=== PATIENT | male | born 1970 | race Caucasian/White ===

== ENCOUNTER → 2016-09-24 | Outpatient (CLI) | payer BC | END | disposition home or self-care (01) | LOC: RADMRIMAIN 20:59 | PROVIDERS: ATTEND Family Medicine | DX: Z53.9 Procedure and treatment not carried out, unspecified reason (principal) ==

== ENCOUNTER → 2016-10-19 | Outpatient (CLI) | payer BC ==
[2016-10-19 10:55] LABS: Basophils # (A) 0.1 k/uL (0-0.2); Basophils % (A) 1 %; CH 28.1; CHCM 32.7; Eosinophils # (A) 0.2 k/uL (0-0.7); Eosinophils % (A) 2 %; HCT 44.7 % (39.0-53.0); HDW 2.57; HGB 14.6 gm/dL (13.0-17.5); Luc # (Auto) 0.19; Luc % (Auto) 3; Lymphocytes # (A) 2.2 k/uL (1.0-4.8); Lymphocytes % (A) 29 %; MCH 28.1 pg (25.0-35.0); MCHC 32.6 g/dL (31.0-37.0); MCV 86.3 fL (80.0-100.0); Monocytes # (A) 0.5 k/uL (0-1.0); Monocytes % (A) 7 %; Neutrophils # (A) 4.3 k/uL (1.3-7.7); Neutrophils % (A) 58 %; RBC 5.18 m/uL (4.30-5.90); RDW 13.6 % (11.5-15.5); WBC 7.5 k/uL (3.8-10.6)
[2016-10-19 11:16] LABS: Potassium 3.6 mmol/L (3.5-5.1)
== END | disposition home or self-care (01) ==
LOC: LABPAT 10:13
PROVIDERS: ATTEND Orthopaedic Surgery
DX: Z01.812 Encounter for preprocedural laboratory examination (principal); M75.42 Impingement syndrome of left shoulder
CPT/HCPCS: 80051; 85025

== ENCOUNTER 2016-11-11 06:13 | Day surgery (SDC) | payer BC ==
[2016-11-09 09:11] VITALS: BMI 37.9
--- NOTE | 2016-11-10 16:59 | HP ---
DATE OF ADMISSION: Fuad Boothe is a 46-year-old patient seen with progressive left shoulder pain. After having treatment options discussed, he elected to proceed with left shoulder arthroscopy. Consent was obtained. Past medical history is hypertension, hepatitis. PAST SURGICAL HISTORY: Cholecystectomy, herniorrhaphy. Daily medications: 1. Losartan. 2. Potassium. 3. Hydrochlorothiazide. ALLERGIES: POSSIBLE PENICILLIN. SOCIAL HISTORY: Patient denies current tobacco use. Physical evaluation of left shoulder: Flexion 90 degrees, abduction is 40 degrees, external rotation 0 degrees with pain and weakness, tenderness along the anterolateral acromion, subacromial space area. Impingement +60 degrees distal neurovascular exam is intact. Radiographs of the left shoulder revealed a type II anterior acromion, acromioclavicular joint osteoarthritis. MRI of the left shoulder revealed osteoarthritis type II anterior acromion, adhesions and tendinitis. IMPRESSION: Left shoulder impingement with acromioclavicular joint osteoarthritis, and adhesive capsulitis. PLAN: Left shoulder arthroscopy, subacromial decompression, possible Stevie procedure, lysis of adhesions and debridement.
[~2016-11-11 06:13] MED LIST: CLINDAMYCIN 900 MG in DEXTROSE 5% IN WATER 50 ML IVPB ONE; DEXAMETHASONE SOD PHOSPHATE 10 MG/ML 1 ML VIAL IV ONE; FAMOTIDINE 20 MG/2 ML VIAL IV PRN; HYDROmorphone 1 MG/ML 1 ML SYRINGE IVP PRN; LIDOCAINE 1% 20 ML VIAL (10MG/ML) FOR IV START INTRADERMA PRN; MIDAZOLAM 2 MG/2 ML VIAL IV PRN; SCOPOLAMINE 1.5MG/72HR PATCH TRANSDERM ONE
[2016-11-11 07:00] VITALS: RESP 16
[2016-11-11] MEDS: LACTATED RINGERS 1,000 ML IV SCH ×2 (07:04→11:02)
[2016-11-11] MEDS ORDERED: ROCURONIUM BROMIDE 10 MG/ML 10 ML VIAL IV ONE (08:00)
[2016-11-11] MEDS ORDERED: PROPOFOL 10 MG/ML 20 ML VIAL IV ONE (08:00)
[2016-11-11] MEDS ORDERED: SUCCINYLCHOLINE CHLORIDE 100 MG/5 ML SYR IV ONE (08:00)
[2016-11-11] MEDS ORDERED: LIDOCAINE 2%-EPI 1:100,000 20 ML VIAL ONE (08:00)
[2016-11-11] MEDS ORDERED: LIDOCAINE 1% INJ 10MG/ML (20 ML MDV) ONE (08:00)
[2016-11-11] MEDS ORDERED: NEOSTIGMINE 1 MG/ML 10 ML VIAL ONE (08:00)
[2016-11-11] MEDS ORDERED: GLYCOPYRROLATE 0.2 MG/ML 2 ML VIAL ONE (08:00)
[2016-11-11] MEDS ORDERED: fentaNYL (PF) 50 MCG/ML 2 ML AMP ONE (08:00)
[2016-11-11] MEDS ORDERED: PHENYLEPHRINE-0.9% NACL SYG 1 MG/10 ML SYRINGE ONE (08:00)
[2016-11-11] MEDS ORDERED: ROPIVACAINE 5 MG/ML 30 ML VIAL ONE (08:00)
--- NOTE | 2016-11-11 09:54 | P.OP ---
Date of Procedure: 11/11/16 Preoperative Diagnosis: 1. Left shoulder impingement 2. Left shoulder adhesive capsulitis Postoperative Diagnosis: 1. Left shoulder impingement 2. Left shoulder partial rotator cuff tear 3. Left shoulder acromioclavicular joint osteoarthritis 4. Left shoulder partial biceps tendon tear 5. Left shoulder adhesive capsulitis 6. Left shoulder superficial labral tear Procedure(s) Performed: 1. Left shoulder arthroscopic subacromial decompression 2. Left shoulder arthroscopic debridement partial rotator cuff tear 3. Left shoulder arthroscopic Stevie procedure 4. Left shoulder arthroscopic biceps tenotomy 5. Left shoulder arthroscopic lysis of adhesions 6. Left shoulder arthroscopic debridement labral tear Implants: Anesthesia: GETA, regional (Shoulder block) Surgeon: César Velasquez Parking Analyst #1: Hugo Rousseau Estimated Blood Loss (ml): 20 Pathology: none sent Condition: stable Disposition: PACU Indications for Procedure: 46-year-old patient seen with progressive left shoulder pain. After having treatment options discussed, he elected to proceed with arthroscopy. Operative Findings: see description of procedure Description of Procedure: Patient underwent a shoulder block by department of anesthesia. The patient was then taken to the operative suite. The patient underwent a general anesthetic by the department of anesthesia. The patient was placed into a lateral position and secured. There was appropriate padding of the bony prominence. Left shoulder was then prepped and draped in normal sterile orthopedic fashion. We placed the extremity in 10 pounds of longitudinal traction. A posterior incision was now made for a posterior working portal site. The trocar and cannula were inserted into the glenohumeral joint. Arthroscopy was initiated. Spinal needle was now inserted anteriorly, to ascertain the anterior working portal site. An incision was now made in that area, a trocar was inserted followed by a probe. There was partial tearing long head biceps tendon. There was superficial tearing of the superior and anterior labrum. There were grade 1/2 chondromalacia changes of the glenoid and grade 1 chondromalacia changes of the humeral head, no osteochondral tears were present. We did note adhesions within the glenohumeral joint as well. At this point I performed an arthroscopic biceps tenotomy. I debrided the labral tear down to stable tissue and performed a lysis of the adhesions. The residual labrum was probed and found to be stable. At this point I removed the instruments from glenohumeral joint. Utilizing the posterior working portal site, the trocar and cannula were inserted into the subacromial space. Arthroscopy initiated. I made an incision 2 fingerbreadths lateral to the acromion. I introduced my trocar followed by my ArthroCare ablator. I now began ablating thick subacromial bursal tissue, which exposed the undersurface of the anterior acromion. This was diminished subacromial space. There was a very prominent anterior acromion. A motorized bur was introduced and a subacromial decompression was performed. I also excised some osteophytes off the inferior aspect of the distal clavicle. The AC joint was visualized and noted to be fairly arthritic. Our motorized bur was introduced in the anterior portal site and a Stevie procedure was performed without difficulty, decompressing the AC joint nicely. I did note some adhesions within the area of the subacromial space which I debrided out with a motorized bur. I turned my attention to the rotator cuff. There was superficial tearing of the supraspinatus along the distal insertion area. I used a motorized shaver and debrided down to stable tissue. The residual rotator cuff tendon tissue was thoroughly probed and there was no evidence for any perforation or through and through tear. The residual tissue was fairly robust. I injected 1 mL of Allogen at the debrided rotator cuff site as well as intra-articular. Instruments now removed from the portal sites. All portal sites were approximated with nylon suture. Sterile dressings were applied followed by a shoulder immobilizer. Ramy TELLEZ assisted with the procedure. The patient was awakened, transferred to a bed, and taken to recovery in stable condition.
[2016-11-11 10:04] VITALS: TEMP 96.8
[2016-11-11 12:06] VITALS: PULSE 85
[2016-11-11 12:19] VITALS: BP 119/79
== END 2016-11-11 13:27 | disposition home or self-care (01) ==
LOC: OR 06:13
PROVIDERS: ATTEND Orthopaedic Surgery
DX: M75.112 Incomplete rotator cuff tear or rupture of left shoulder, not specified as traumatic (principal); M75.02 Adhesive capsulitis of left shoulder; S46.112A Strain of muscle, fascia and tendon of long head of biceps, left arm, initial encounter; S43.492A Other sprain of left shoulder joint, initial encounter; X58.XXXA Exposure to other specified factors, initial encounter; M19.012 Primary osteoarthritis, left shoulder; M75.42 Impingement syndrome of left shoulder; M94.212 Chondromalacia, left shoulder; M25.712 Osteophyte, left shoulder; I10 Essential (primary) hypertension; Z79.899 Other long term (current) drug therapy; Z79.1 Long term (current) use of non-steroidal anti-inflammatories (NSAID)
CPT/HCPCS: 64415; 29824; 29826; 29827; C1765; J2250; J1100; J2710; J2001; J3010; J2795; J2370; J0330; J2704

== ENCOUNTER → 2020-02-07 | Outpatient (CLI) | payer BC ==
[2020-02-07 14:33] LABS: Basophils # (A) 0.1 k/uL (0-0.2); Basophils % (A) 1 %; Eosinophils # (A) 0.2 k/uL (0-0.7); Eosinophils % (A) 2 %; HCT 47.9 % (39.0-53.0); HGB 15.5 gm/dL (13.0-17.5); Lymphocytes # (A) 2.7 k/uL (1.0-4.8); Lymphocytes % (A) 30 %; MCHC 32.3 g/dL (31.0-37.0); MCV 83.5 fL (80.0-100.0); Mean Platelet Volume 7.8; Monocytes # (A) 0.8 k/uL (0-1.0); Monocytes % (A) 8 %; Neutrophils # (A) 5.3 k/uL (1.3-7.7); Neutrophils % (A) 57 %; Platelet Count 329 k/uL (150-450); RBC 5.73 m/uL (4.30-5.90); WBC 9.2 k/uL (3.8-10.6)
== END | disposition home or self-care (01) ==
LOC: LABPAT 12:50
PROVIDERS: ATTEND Orthopaedic Surgery
DX: Z01.818 Encounter for other preprocedural examination (principal); M75.41 Impingement syndrome of right shoulder
CPT/HCPCS: 85025

== ENCOUNTER → 2020-02-16 | Outpatient (CLI) | payer BC ==
[2020-02-16 14:58] LABS: Potassium 3.7 mmol/L (3.5-5.1)
== END | disposition home or self-care (01) ==
LOC: LABPAT 13:33
PROVIDERS: ATTEND Orthopaedic Surgery
DX: Z01.818 Encounter for other preprocedural examination (principal); M75.41 Impingement syndrome of right shoulder
CPT/HCPCS: 36415; 80051

== ENCOUNTER 2020-02-21 08:10 | Day surgery (SDC) | payer BC ==
[2020-02-16 12:31] VITALS: BMI 37.8
--- NOTE | 2020-02-20 16:25 | HP ---
HISTORY AND PHYSICAL DATE OF SURGERY: 02/21/2020 Fuad Boothe is a 49-year-old patient seen with progressive right shoulder pain. Options for treatment were discussed. He elected to proceed with arthroscopy. Consent was obtained. PAST MEDICAL HISTORY: Hypertension, hyperlipidemia. PAST SURGICAL HISTORY: Cholecystectomy, herniorrhaphy. DAILY MEDICATIONS: Hydrochlorothiazide, losartan. ALLERGIES: PENICILLIN. SOCIAL HISTORY: Denies current tobacco use. PHYSICAL EVALUATION OF RIGHT SHOULDER: Flexion 140 degrees, abduction 130 degrees, external rotation 25 degrees with pain and weakness. Tenderness along the anterolateral acromion, rotator cuff insertion site. Impingement is positive at 70 degrees. Distal neurovascular exam is intact. RADIOGRAPHS: Right shoulder radiographs revealed a type 2 anterior acromion, evidence for acromioclavicular joint osteoarthritis. Right shoulder MRI revealed a partial rotator cuff tendon tear, partial biceps tendon tear, labral tear and glenohumeral joint osteoarthritis. IMPRESSION: 1. Right shoulder impingement with rotator cuff tear. 2. Right shoulder partial long head biceps tendon tear. 3. Right shoulder labral tear. 4. Right shoulder osteoarthritis. 5. Hypertension. 6. Hyperlipidemia. PLAN: Right shoulder arthroscopy with subacromial decompression, arthroscopic rotator cuff repair, biceps tenotomy and debridement. MMODL / IJN: [id number] /
[~2020-02-21 08:10] MED LIST changes: -DEXAMETHASONE SOD PHOSPHATE 10 MG/ML 1 ML VIAL IV ONE; +HYDROmorphone 0.5 MG/0.5 ML SYRINGE IVP PRN; -HYDROmorphone 1 MG/ML 1 ML SYRINGE IVP PRN; -LIDOCAINE 1% 20 ML VIAL (10MG/ML) FOR IV START INTRADERMA PRN; -MIDAZOLAM 2 MG/2 ML VIAL IV PRN; +ONDANSETRON 4 MG/2 ML VIAL IVP PRN; -SCOPOLAMINE 1.5MG/72HR PATCH TRANSDERM ONE
[2020-02-21 08:47] LABS: Glucose,Whole Blood 86 mg/dL (75-99)
[2020-02-21] MEDS ORDERED: ONDANSETRON 4 MG/2 ML VIAL ONE (08:49)
[2020-02-21] MEDS: LACTATED RINGERS 1,000 ML IV SCH ×2 (08:50→10:10)
[2020-02-21] MEDS ORDERED: DEXAMETHASONE SOD PHOSPHATE 10 MG/ML 1 ML VIAL IV ONE (08:50)
[2020-02-21] MEDS ORDERED: SCOPOLAMINE 1.5MG/72HR PATCH TRANSDERM ONE (08:50)
[2020-02-21] MEDS ORDERED: MIDAZOLAM 2 MG/2 ML VIAL IVP ONE (09:09)
--- NOTE | 2020-02-21 09:48 | P.ANPRN ---
Procedure Note - Anesthesia - Nerve Block Performed Right Interscalene Time Out Performed: Yes (:) Date of Procedure: 02/21/20 Procedure Start Time: Procedure Stop Time: Location of Patient: PreOp Indication: Acute Post-Operative Pain, Requested by Surgeon (Dr Velasquez) Sedation Type: Sedate with meaningful contact maintained Preparation: Sterile Prep Position: Supine Catheter: None Needle Types: Pajunk Needle Gauge: Other (see comment) (22g) Ultrasound used to visualize needle placement: Yes Ultrasound used to observe medication spread: Yes Injectate: 0.5% Ropivacaine (see comment for volume) (20cc + Decadron 4mg) Blood Aspirated: No Pain Paresthesia on Injection Noted: No Resistance on Injection: Normal Image Stored and Saved: Yes Events: Uneventful and Well Tolerated
[2020-02-21] MEDS ORDERED: DEXAMETHASONE SOD PHOSPHATE 4 MG/ML 1 ML VIAL ONE (10:11)
[2020-02-21] MEDS ORDERED: SUCCINYLCHOLINE CHLORIDE VIAL 200 MG/10 ML VIAL IV ONE (10:11)
[2020-02-21] MEDS ORDERED: ROPIVACAINE 5 MG/ML 30 ML VIAL ONE (10:11)
[2020-02-21] MEDS ORDERED: fentaNYL (PF) 50 MCG/ML 2 ML AMP ONE (10:11)
[2020-02-21] MEDS ORDERED: PROPOFOL 10 MG/ML 20 ML VIAL IV ONE (10:11)
[2020-02-21] MEDS ORDERED: LIDOCAINE 1% INJ 10MG/ML (20 ML MDV) ONE (10:11)
[2020-02-21] MEDS ORDERED: MIDAZOLAM 2 MG/2 ML VIAL ONE (10:11)
[2020-02-21] MEDS ORDERED: LACTATED RINGERS 1,000 ML IV ONE (11:26)
--- NOTE | 2020-02-21 11:43 | P.OP ---
Date of Procedure: 02/21/20 Preoperative Diagnosis: Right shoulder impingement Postoperative Diagnosis: 1. Right shoulder rotator cuff tear 2. Right shoulder impingement 3. Right shoulder acromioclavicular joint osteoarthritis 4. Right shoulder partial long head biceps tendon tear Procedure(s) Performed: 1. Right shoulder arthroscopic rotator cuff repair 2. Right shoulder arthroscopic subacromial decompression 3. Right shoulder arthroscopic Stevie procedure 4. Right shoulder arthroscopic biceps tenotomy Implants: 15.5 Arthrex swivel lock anchor Anesthesia: GETA, regional (Interscalene block) Surgeon: César Velasquez Estimated Blood Loss (ml): 10 Pathology: none sent Condition: stable Disposition: PACU Indications for Procedure: 49-year-old patient seen with progressive right shoulder pain. After treatment options were discussed, he elected to proceed with arthroscopy. Operative Findings: see description of procedure Description of Procedure: Patient underwent an interscalene block by department of anesthesia. The patient was then taken to the operative suite. The patient underwent a general anesthetic by the department of anesthesia. The patient was placed into a lateral position and secured. There was appropriate padding of the bony prominence. Right shoulder was then prepped and draped in normal sterile orthopedic fashion. We placed the extremity in 10 pounds of longitudinal tracti on. A posterior incision was now made for a posterior working portal site. The trocar and cannula were inserted into the glenohumeral joint. Arthroscopy was initiated. Spinal needle was now inserted anteriorly, to ascertain the anterior working portal site. An incision was now made in that area, a trocar was inserted followed by a probe. There was partial tearing and hyperemia long head biceps tendon. There was mild grade 1 chondromalacia of the humeral head with no osteochondral tears present. I performed an arthroscopic biceps tenotomy. The labrum was again probed and found to be stable. Instruments were now removed from glenohumeral joint. Utilizing the posterior working portal site, the trocar and cannula were inserted into the subacromial space. Arthroscopy initiated. I made an incision 2 fingerbreadths lateral to the acromion. I introduced my trocar followed by my ArthroCare ablator. I now began ablating thick subacromial bursal tissue, which exposed the undersurface of the anterior acromion. There was diminished subacromial space. There was a very prominent anterior acromion. A motorized bur was introduced and a subacromial decompression was performed. I also excised some osteophytes off the inferior aspect of the distal clavicle. The AC joint was visualized and noted to be fairly arthritic. The motorized bur was introduced in the anterior portal site and a Stevie procedure was performed without difficulty, decompressing the AC joint nicely. I turned my attention to the rotator cuff. There was a 11.5 cm rotator cuff tear. I debrided the margins getting down to stable tendon tissue. I abraded the footprint with a motorized bur. I passed 2 everted mattress sutures through good bites of rotator cuff tendon. I punched a hole in the footprint area for insertion of anchor. I now passed the 4 limbs of suture through the eyelet of a 5.5 Arthrex swivel lock anchor. The eyelet was placed into the pre-punch hole. I tensioned all the sutures and deployed the anchor. There was good fixation of anchor. All residual suture limbs were now clipped. We had good compression of the tendon along the entire footprint. I injected 1 mL Renyte intra-articular. Instruments now removed from the portal sites. All portal sites were approximated with nylon suture. Sterile dressings were applied followed by a shoulder sling. The patient was awakened, transferred to a bed, and taken to recovery in stable condition.
[2020-02-21 11:49] VITALS: RESP 16; TEMP 97.5
[2020-02-21 13:47] VITALS: BP 120/71; PULSE 81
== END 2020-02-21 13:58 | disposition home or self-care (01) ==
LOC: OR 08:10
PROVIDERS: ATTEND Orthopaedic Surgery
DX: M75.101 Unspecified rotator cuff tear or rupture of right shoulder, not specified as traumatic (principal); M25.811 Other specified joint disorders, right shoulder; M19.011 Primary osteoarthritis, right shoulder; S46.111A Strain of muscle, fascia and tendon of long head of biceps, right arm, initial encounter; M94.211 Chondromalacia, right shoulder; I10 Essential (primary) hypertension; E78.5 Hyperlipidemia, unspecified; B19.20 Unspecified viral hepatitis C without hepatic coma; Z88.0 Allergy status to penicillin; Z90.49 Acquired absence of other specified parts of digestive tract; Z98.890 Other specified postprocedural states; Z87.19 Personal history of other diseases of the digestive system; Z79.899 Other long term (current) drug therapy; X58.XXXA Exposure to other specified factors, initial encounter
CPT/HCPCS: 64415; 76942; 29827; 29826; 29824; C1713; Q4212; J2250; J0330; J1100 ×2; J2405; J2001; J3010; J2795; J2704

== ENCOUNTER 2020-06-10 08:33 | Day surgery (SDC) | payer BC ==
[2020-06-03 12:13] VITALS: BMI 37.9
--- NOTE | 2020-06-09 13:08 | HP ---
HISTORY AND PHYSICAL DATE OF SURGERY: 06/10/2020 Fuad Boothe is a 50-year-old gentleman seen with right shoulder adhesive capsulitis. We discussed options for treatment. He elected to proceed with manipulation under anesthesia right shoulder with steroid injection. Consent was obtained. PAST MEDICAL HISTORY: Hypertension PAST SURGICAL HISTORY: Right shoulder arthroscopy, cholecystectomy, and herniorrhaphy. DAILY MEDICATIONS: Hydrochlorothiazide, losartan. ALLERGIES: PENICILLIN. SOCIAL HISTORY: Denies tobacco use. PHYSICAL EXAMINATION: Evaluation of the right shoulder; he has previous well-healed arthroscopic portal sites. Flexion 50 degrees. Abduction is 20 degrees. External rotation 20 degrees with weakness. Distal neurovascular exam is intact. RADIOGRAPHS: Right shoulder radiographs revealed conversion to a flat anterior acromion. IMPRESSION: 1. Right shoulder adhesive capsulitis. 2. History of right shoulder arthroscopic rotator cuff repair. 3. Hypertension. PLAN: Manipulation under anesthesia right shoulder with steroid injection. MMODL / IJN: [id number] /
[~2020-06-10 08:33] MED LIST changes: -CLINDAMYCIN 900 MG in DEXTROSE 5% IN WATER 50 ML IVPB ONE; +CLINDAMYCIN 900 MG in DEXTROSE 5% IN WATER 50 ML IVPB PRN; +DEXAMETHASONE SOD PHOSPHATE 4 MG/ML 1 ML VIAL IV ONE; -FAMOTIDINE 20 MG/2 ML VIAL IV PRN; -HYDROmorphone 0.5 MG/0.5 ML SYRINGE IVP PRN; +LACTATED RINGERS 1,000 ML IV SCH; +LIDOCAINE 1% (10MG/ML) FOR IV START INTRADERMA PRN; +MIDAZOLAM 2 MG/2 ML VIAL IV PRN; +ONDANSETRON 4 MG/2 ML VIAL IVP ONE; -ONDANSETRON 4 MG/2 ML VIAL IVP PRN; +fentaNYL (PF) 50 MCG/ML 2 ML AMP IVP PRN
[2020-06-10] MEDS ORDERED: ONDANSETRON 4 MG/2 ML VIAL ONE (09:06)
[2020-06-10] MEDS ORDERED: LACTATED RINGERS 1,000 ML IV ONE (09:08)
[2020-06-10] MEDS ORDERED: ONDANSETRON 4 MG/2 ML VIAL IVP ONE (09:09)
[2020-06-10] MEDS ORDERED: DEXAMETHASONE SOD PHOSPHATE 4 MG/ML 1 ML VIAL IVP ONE (09:09)
[2020-06-10] MEDS ORDERED: diphenhydrAMINE 50 MG/ML 1 ML VIAL ONE (09:14)
[2020-06-10] MEDS ORDERED: KETOROLAC 15 MG/ML 1 ML VIAL ONE (09:19)
[2020-06-10] MEDS ORDERED: PROPOFOL 10 MG/ML 20 ML VIAL IV ONE (09:19)
[2020-06-10] MEDS ORDERED: fentaNYL (PF) 50 MCG/ML 2 ML AMP ONE (09:19)
[2020-06-10 09:30] VITALS: TEMP 98
[2020-06-10] MEDS ORDERED: BUPIVACAIN-EPI 0.25%-1:200,000 30 ML VIAL INTRAARTIC ONE (09:30)
[2020-06-10] MEDS ORDERED: methylPREDNISolone ACETATE 80 MG/ML 1 ML VIAL INTRAARTIC ONE (09:30)
--- NOTE | 2020-06-10 09:36 | P.OP ---
Date of Procedure: 06/10/20 Preoperative Diagnosis: Right shoulder adhesive capsulitis Postoperative Diagnosis: Right shoulder adhesive capsulitis Procedure(s) Performed: Patient under anesthesia right shoulder with steroid injection Anesthesia: MAC, local Surgeon: César Velasquez Estimated Blood Loss (ml): 0 Pathology: none sent Condition: stable Disposition: PACU Indications for Procedure: 50-year-old gentleman seen with right shoulder adhesive capsulitis. After treatment options were discussed, he elected to proceed with manipulation under anesthesia right shoulder with steroid injection Operative Findings: See description of procedure Description of Procedure: Patient was taken to monitored anesthesia area. Patient received IV sedation by the department of anesthesia. Once adequate analgesia/anesthesia was noted I performed a manipulation of the right shoulder achieving near full range of motion with audible tearing of the adhesions. The anterior aspect of the right shoulder was prepped and draped in the normal sterile orthopedic fashion. I injected a solution of 1 mL Depo-Medrol and 3 mL quarter percent plain Marcaine intra-articular glenohumeral joint under sterile technique. A sterile Band-Aid was applied. The patient was awakened having tolerated procedure well.
[2020-06-10] MEDS: HYDROmorphone 0.5 MG/0.5 ML SYRINGE IVP PRN ×2 (09:43→09:52)
[2020-06-10] MEDS ORDERED: HYDROcodone/APAP 5-325MG 1 EACH TAB ONE (10:53)
[2020-06-10] MEDS ORDERED: HYDROcodone/APAP 5-325MG 1 EACH TAB PO ONE ×2 (10:55→10:58)
[2020-06-10 11:13] VITALS: RESP 20
[2020-06-10 11:29] VITALS: BP 132/83; PULSE 68
== END 2020-06-10 11:31 | disposition home or self-care (01) ==
LOC: OR 08:33
PROVIDERS: ATTEND Orthopaedic Surgery
DX: M75.01 Adhesive capsulitis of right shoulder (principal); Z88.0 Allergy status to penicillin; I10 Essential (primary) hypertension; Z79.899 Other long term (current) drug therapy; Z98.890 Other specified postprocedural states; Z90.49 Acquired absence of other specified parts of digestive tract
CPT/HCPCS: 23700; J1040; J1100; J2405; J3010; J1885; J2704; J1170